=== PATIENT | male | born 1970 | race Hispanic/Latino ===

== ENCOUNTER 2020-01-27 13:05 | Emergency (ER) | payer BC ==
[2020-01-27 13:40] LABS: Absolute Lymphocytes (CBC) 2.6 K/uL (0.7-4.9); Basophils % 1.2 % (0-1.3); Hematocrit 44.2 % (39.6-49.0); Lymphocytes % 27.9 % (15.3-44.8); MPV 8.8 fL (7.6-11.3); RBC Red Blood Cell Count 5.17 M/uL (4.33-5.43)
[2020-01-27 13:56] LABS: BUN Blood Urea Nitrogen 10 mg/dL (7-18); Bicarbonate 29 mmol/L (21-32); Glucose Level 123 mg/dL (74-106); Potassium 3.9 mmol/L (3.5-5.1); Sodium Level 140 mmol/L (136-145)
--- NOTE | 2020-01-27 14:07 | RAD REPORT ---
EXAM DESCRIPTION: CT - Head Brain Wo Cont - 01/27/2020 1:56 pm CLINICAL HISTORY: ROMEO'S PALSY Headache, drowsiness, paresthesia COMPARISON: HEAD BRAIN W O CONTRAST dated 02/25/2008 TECHNIQUE: All CT scans are performed using dose optimization technique as appropriate and may inclu de automated exposure control or mA/KV adjustment according to patient size. FINDINGS: No intracranial hemorrhage, hydrocephalus or extra-axial fluid collection.No areas of brai n edema or evidence of midline shift. The paranasal sinuses and mastoids are clear. The calvarium is intact. IMPRESSION: No acute intracranial abnormality.
--- NOTE | 2020-01-27 14:59 | EDPHYS ---
Physician Documentation [facility] Name: Salty Shafer Age: 49 yrs Sex: Male : 1970 Arrival Date: 01/27/2020 Time: 13:08 Bed 5 Private MD: ED Physician Anthony Schofield HPI: 01/26 13:36 This 49 yrs old Male presents to ER via Ambulatory with complaints of facial rn droop, eye irritation. 13:36 The patient's problem is reported as a facial droop, on right. Onset: The rn symptoms/episode began/occurred yesterday. The symptoms are alleviated by nothing. The symptoms are aggravated by nothing. Severity of symptoms: At their worst the symptoms were mild in the emergency department the symptoms are unchanged. The patient has not experienced similar symptoms in the past. Reports noticed right eye bothering him yesterday, felt like something in it, no injury. Reports woke up this morning and noticed right facial droop, breakfast was falling out of mouth and unable to close right eye. No other focal neuro complaint. . Historical: - Allergies: 13:30 No Known Allergies; aa5 - Home Meds: 13:30 None [Active]; aa5 - PMHx: 13:30 None; aa5 - PSHx: 13:30 None; aa5 - Immunization history:: Flu vaccine is not up to date. - Social history:: Smoking status: Patient reports the use of cigarette tobacco products, chewing tobacco. - Family history:: not pertinent. - Hospitalizations: : No recent hospitalization is reported. 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 Exam: 13:36 Constitutional: This is a well developed, well nourished patient who is awake, alert, rn and in no acute distress. Head/Face: Normocephalic, atraumatic. Eyes: Pupils equal round and reactive to light, extra-ocular motions intact. Conjunctiva and sclera are non-icteric and not injected. Cornea within normal limits. Periorbital areas with no swelling, redness, or edema. + Unable to close right eye Cardiovascular: Regular rate and rhythm. No pulse deficits. Respiratory: Speaking full sentences. No increased work of breathing, no retractions or nasal flaring. Skin: Warm, dry with normal turgor. Normal color with no rashes, no lesions, and no evidence of cellulitis. MS/ Extremity: Pulses equal, no cyanosis. Neurovascular intact. Full, normal range of motion. Equal circumference. Neuro: Awake and alert, GCS 15, oriented to person, place, time, and situation.+ right upper and lower facial weakness. Motor strength 5/5 in all extremities. Sensory grossly intact. Cerebellar exam normal. Normal gait. Vital Signs: 13:10 BP 136 / 84; Pulse 88; Resp 18 S; Temp 98.5(O); Pulse Ox 97% on R/A; Weight 74.84 kg aa5 (R); Height 5 ft. 6 in. (167.64 cm) (R); Pain 0/10; 13:10 Body Mass Index 26.63 (74.84 kg, 167.64 cm) aa5 MDM: 13:11 Patient medically screened. rn 14:56 Differential diagnosis: CVA, Ulysses palsy. Data reviewed: vital signs, nurses notes. rn Counseling: I had a detailed discussion with the patient and/or guardian regarding: the historical points, exam findings, and any diagnostic results supporting the discharge/admit diagnosis, lab results, radiology results, the need for outpatient follow up, to return to the emergency department if symptoms worsen or persist or if there are any questions or concerns that arise at home. Special discussion: I discussed with the patient/guardian in detail that at this point there is no indication for admission to the hospital. It is understood, however, that if the symptoms persist or worsen the patient needs to return immediately for re-evaluation. Based on the history and exam findings, there is no indication for further emergent testing or inpatient evaluation. I discussed with the patient/guardian the need to see the neurologist for further evaluation of the symptoms. ED course: Pt with neg ct head, no acute findings in bloodwork, will dc home as bells palsy with neuro f/u and steroids. . 14:59 ED course: Advised to use lubricant eyedrops, and tape eye shut at night. . rn 01/26 13:19 Order name: CBC with Diff; Complete Time: 14:05 rn 01/26 13:19 Order name: Basic Metabolic Panel; Complete Time: 14:05 rn 01/26 13:19 Order name: CT Head Brain wo Cont; Complete Time: 14:33 rn 01/26 13:19 Order name: IV Start; Complete Time: 13:35 rn Administered Medications: No medications were administered Disposition: 01/27/20 14:58 Discharged to Home. Impression: Wilkes's palsy. - Condition is Stable. - Discharge Instructions: Wilkes Palsy, Adult. - Prescriptions for Acyclovir 400 mg Oral Tablet - take 1 tablet by ORAL route every 8 hours; 30 tablet. Medrol (Sulaiman) 4 mg Oral Tablets, Dose Pack - take 1 tablet by ORAL route as directed - follow package instructions; 1 packet. - Medication Reconciliation Form, Thank You Letter, Antibiotic Education, Prescription Opioid Use form. - Follow up: Amanuel Graff MD; When: As needed; Reason: Recheck today's complaints, Re-evaluation by your physician. - Problem is new. - Symptoms are unchanged. Signatures: Dispatcher [employer] Suzan Alvarado RN Anthony Burk MD MD rn Calderon, Audri, RN RN aa5 Corrections: (The following items were deleted from the chart) 15:13 14:58 01/27/2020 14:58 Discharged to Home. Impression: Wilkes's palsy. Condition is iw Stable. Forms are Medication Reconciliation Form, Thank You Letter, Antibiotic Education, Prescription Opioid Use. Follow up: Amanuel Graff; When: As needed; Reason: Recheck today's complaints, Re-evaluation by your physician. Problem is new. Symptoms are unchanged. rn
--- NOTE | 2020-01-27 14:59 | ER ---
Nurse's Notes [facility] Name: Salty Shafer Age: 49 yrs Sex: Male : 1970 Arrival Date: 01/27/2020 Time: 13:08 Bed 5 Private MD: Diagnosis: Wilkes's palsy Presentation: 01/26 13:10 Chief complaint: Patient states: numbness to right side of face that began today at aa5 1200. Pt also reports blurry vision to both eyes since yesterday. No arm or leg drift noted. Right facial droop noted. 13:10 Coronavirus screen: Proceed with normal triage. Patient denies a cough. Patient denies aa5 shortness of breath or difficulty breathing. Patient denies measured and/or subjective temperature greater than 100.4F prior to today's visit. Patient denies travel on a cruise ship or to a country the [facility] currently lists as an affected area. Patient denies contact with known and/or suspected case of COVID-19. Ebola Screen: Patient negative for fever greater than or equal to 101.5 degrees Fahrenheit, and additional compatible Ebola Virus Disease symptoms. Initial Sepsis Screen: Does the patient meet any 2 criteria? No. Patient's initial sepsis screen is negative. Does the patient have a suspected source of infection? No. Patient's initial sepsis screen is negative. Risk Assessment: Do you want to hurt yourself or someone else? Patient reports no desire to harm self or others. Onset of symptoms was January 27, 2020. 13:10 Acuity: RALPH 2 aa5 13:10 Method Of Arrival: Ambulatory aa5 Triage Assessment: 13:10 General: Appears in no apparent distress. comfortable, Behavior is cooperative, bp appropriate for age, anxious. Pain: Denies pain. EENT: No deficits noted. Neuro: Facial droop on right. Cardiovascular: No deficits noted. Respiratory: No deficits noted. GI: No signs and/or symptoms were reported involving the gastrointestinal system. : No signs and/or symptoms were reported regarding the genitourinary system. Derm: No deficits noted. Musculoskeletal: No deficits noted. Historical: - Allergies: 13:30 No Known Allergies; aa5 - Home Meds: 13:30 None [Active]; aa5 - PMHx: 13:30 None; aa5 - PSHx: 13:30 None; aa5 - Immunization history:: Flu vaccine is not up to date. - Social history:: Smoking status: Patient reports the use of cigarette tobacco products, chewing tobacco. - Family history:: not pertinent. - Hospitalizations: : No recent hospitalization is reported. Screenin:10 Abuse screen: Denies threats or abuse. Denies injuries from another. Nutritional bp screening: No deficits noted. Tuberculosis screening: No symptoms or risk factors identified. Fall Risk None identified. Assessment: 13:10 General: SEE TRIAGE NOTE. bp Vital Signs: 13:10 BP 136 / 84; Pulse 88; Resp 18 S; Temp 98.5(O); Pulse Ox 97% on R/A; Weight 74.84 kg aa5 (R); Height 5 ft. 6 in. (167.64 cm) (R); Pain 0/10; 13:10 Body Mass Index 26.63 (74.84 kg, 167.64 cm) aa5 ED Course: 13:08 Patient arrived in ED. ag5 13:10 Arm band placed on Patient placed in an exam room, on a stretcher. aa5 13:10 Patient has correct armband on for positive identification. Bed in low position. Call bp light in reach. Side rails up X2. 13:11 Anthony Schofield MD is Attending Physician. rn 13:14 Ralph Zaldivar, AMANDEEP is Primary Nurse. bp 13:30 Triage completed. aa5 13:30 Inserted saline lock: 20 gauge in right forearm, using aseptic technique. Blood bp collected. 13:56 CT Head Brain wo Cont In Process Unspecified. EDMS 14:58 Amanuel Graff MD is Referral Physician. rn 15:13 No provider procedures requiring assistance completed. Patient did not have IV access iw during this emergency room visit. Administered Medications: No medications were administered Outcome: 14:58 Discharge ordered by . rn 15:13 Discharged to home ambulatory. iw 15:13 Condition: good 15:13 Discharge instructions given to patient, Instructed on discharge instructions, follow up and referral plans. medication usage, Demonstrated understanding of instructions, follow-up care, medications, Prescriptions given X 2. 15:13 Patient left the ED. iw Signatures: Dispatcher [employer] EDMS Suzan Mercado RN RN iw Anthony Schofield MD MD rn Calderon, Audri, RN RN aa5 Ralph Zaldivar RN RN bp Majo Devlin ag5
[2020-01-27 15:30] VITALS: BP 136/84; TEMP 98.5; O2SAT 97
== END 2020-01-27 15:13 | disposition home or self-care (01) ==
LOC: ER 13:05
DX: G51.0 Bell's palsy (principal); F17.220 Nicotine dependence, chewing tobacco, uncomplicated
CPT/HCPCS: 36415; 70450; 80048; 85025; 99284

== ENCOUNTER 2024-11-17 05:41 | Inpatient (IN) | payer BC, OTHER ==
[2024-11-17] MEDS ORDERED: MAGNES/ALUMIN/SIMET 30ML UCUP ONE (06:10)
[2024-11-17] MEDS ORDERED: LIDOCAINE VISCOUS 2% 10ML ORAL SOLN ONE (06:10)
[2024-11-17] MEDS ORDERED: NA CHLORIDE 0.9% 1,000 ML ONE ×2 (06:11→08:30)
[2024-11-17] MEDS ORDERED: FAMOTIDINE 20 MG/2 ML VIAL IV ONE (06:11)
[2024-11-17 06:19] LABS: Absolute Eosinophils 0.1 K/uL (0-0.5); Absolute Lymphocytes (CBC) 1.9 K/uL (0.7-4.9); Absolute Monocytes 0.5 K/uL (0.1-1.3); Absolute Neutrophil 8.9 K/uL (1.8-8.0); Basophils % 0.3 % (0-1.3); Eosinophils % 1.1 % (0-4.4); Hematocrit 42.2 % (39.6-49.0); Hemoglobin 13.9 g/dL (13.6-17.9); Lymphocytes % 16.8 % (15.3-44.8); MCH 28.4 pg (27.0-35.0); MCHC 32.9 g/dL (32.0-36.0); MCV 86.3 fL (80-100); MPV 8.5 fL (7.6-11.3); Monocytes % 4.1 % (3.3-12.3); Neutrophils % 77.7 % (41.7-73.7); Nucleated Red Blood Cells % 0.1 % (0-0); Platelets 311 thou/uL (152-406); RBC Red Blood Cell Count 4.89 M/uL (4.33-5.43); Red Cell Distribution Width 14.7 % (12.1-15.2)
[2024-11-17 06:34] LABS: Albumin 3.3 g/dL (3.4-5.0); Albumin/Globulin Ratio 0.9 (1.1-1.8); Anion Gap 8.4 mEq/L (5.0-15.0); Bilirubin Total 0.3 mg/dL (0.2-1.0); Globulin 3.6 g/dL (2.3-3.5); Potassium 3.4 mEq/L (3.5-5.1); Protein, Total 6.9 g/dL (6.4-8.2)
--- NOTE | 2024-11-17 07:38 | RAD REPORT ---
EXAMINATION: CT Abdomen Pelvis W Contrast CLINICAL INDICATION: Male, 54 years old. ABD PAIN TECHNIQUE: CT abdomen and pelvis was performed, after the administration of IV contrast, as per [facility] protocol. Axial, sagittal and coronal reconstructions were obtained. One or more of the following dose reduction techniques were used: Automated exposure control, adjustment of the mA and k V according to patient size, and iterative reconstruction. Unless otherwise specified, incidental findings do not require dedicated imaging follow-up. COMPARISON: No prior exam. FINDINGS: LOWER CHEST: The visualized lung bases are clear. LIVER: Normal in size and contour. Caudate lobe subcapsular fluid density 1.4 cm lesion suggesting a small cyst. No suspicious focal lesion. BILIARY SYSTEM: 1.7 cm cholesterol containing gallstones. Wall thickening and edema, with mucosal hyp erenhancement. No significant pericholecystic fluid. No gas locules SPLEEN: Normal size. No focal lesion. PANCREAS: No mass, ductal dilation, or neela-pancreatic fluid. ADRENALS: Normal; no mass. KIDNEYS: Normal size and contour. No hydronephrosis. Exophytic fluid density right lower renal pole 1 .5 cm lesion, suggesting a small cyst URINARY BLADDER: Unremarkable. GASTROINTESTINAL TRACT: No evidence of free air, significant intra-abdominal free fluid, bowel obstru ction or abscess. APPENDIX: Appendix not visualized, but no inflammatory changes in region of appendix. LYMPH NODES: No lymphadenopathy. MUSCULOSKELETAL: No acute or suspicious osseous abnormality. ADDITIONAL FINDINGS: None. IMPRESSION: Inflammatory changes of the gallbladder suggesting acute cholecystitis, with a 1.7 cm cholesterol con taining gallstones. Other incidental findings as above.
--- NOTE | 2024-11-17 08:14 | ER ---
Nurse's Notes [facility] Name: Salty Shafer Age: 54 yrs Sex: Male : 1970 Arrival Date: 11/17/2024 Time: 05:41 Bed 8 Private MD: Diagnosis: Acute cholecystitis;Other cholelithiasis with obstruction;Epigastric abdominal tenderness;Elevated white blood cell count Presentation: 11/17 05:48 Chief complaint: EMS states: Epigastric pain that started about 0300 hours. Pt had a BM ay and forced vomit but no relief. Denies CP, SOB, N/V. Coronavirus screen: Vaccine status: Patient reports receiving the 2nd dose of the covid vaccine. Client denies travel out of the [place] in the last 14 days. Ebola Screen: No symptoms or risks identified at this time. Initial Sepsis Screen: Does the patient meet any 2 criteria? No. Patient's initial sepsis screen is negative. Does the patient have a suspected source of infection? No. Patient's initial sepsis screen is negative. Risk Assessment: Do you want to hurt yourself or someone else? Patient reports no desire to harm self or others. Note BIBA with a c/o epigastric pain, pt alert and oriented, no distress noted. Rated pain 10/10. Denies CP, SOB, N/V. Onset of symptoms was November 17, 2024 at 03:00. 05:48 Method Of Arrival: EMS: [facility] ay 05:48 Acuity: RALPH 3 ay Triage Assessment: 05:53 General: Appears in no apparent distress. uncomfortable, Behavior is calm, cooperative. ay Pain: Complains of pain in epigastric Pain currently is 10 out of 10 on a pain scale. EENT: No signs and/or symptoms were reported regarding the EENT system. Neuro: Level of Consciousness is awake, alert, obeys commands, Oriented to person, place, time, situation, Speech is normal. Cardiovascular: Denies chest pain, nausea, vomiting. Respiratory: Airway is patent Respiratory effort is even, unlabored, Respiratory pattern is regular, symmetrical. GI: Abdomen is round Abd is soft X 4 quads Reports upper abdominal pain. : No signs and/or symptoms were reported regarding the genitourinary system. Derm: No signs and/or symptoms reported regarding the dermatologic system. Historical: - Allergies: 05:53 NKDA; ay - Immunization history:: Client reports receiving the 2nd dose of the Covid vaccine, Flu vaccine is up to date. - Infectious Disease History:: Denies. - Social history:: Smoking status: Patient reports use of chewing tobacco. - Family history:: not pertinent. Screenin:03 [facility] ED Fall Risk Assessment (Adult) History of falling in the last 3 months, ay including since admission No falls in past 3 months (0 pts) Confusion or Disorientation No (0 pts) Intoxicated or Sedated No (0 pts) Impaired Gait No (0 pts) Mobility Assist Device Used No (0 pt) Altered Elimination No (0 pt) Score/Fall Risk Level 0 - 2 = Low Risk Oriented to surroundings, Maintained a safe environment, Educated pt \T\ family on fall prevention, incl call for assistance when getting out of bed. Abuse screen: Denies threats or abuse. Nutritional screening: No deficits noted. Tuberculosis screening: No symptoms or risk factors identified. Assessment: 06:03 General: See Triage Assessments. GI: Bowel sounds present X 4 quads. ay 07:53 Reassessment:. General: Appears in no apparent distress. comfortable, Behavior is calm, ld1 cooperative, appropriate for age. Pain: Denies pain. Neuro: Level of Consciousness is awake, alert, obeys commands, Oriented to person, place, time, situation. Cardiovascular: Capillary refill < 3 seconds Patient's skin is warm and dry. Respiratory: Airway is patent Respiratory effort is even, unlabored. GI: Abdomen is flat, non-distended, Patient currently denies abdominal pain. : No signs and/or symptoms were reported regarding the genitourinary system. EENT: No signs and/or symptoms were reported regarding the EENT system. Derm: No signs and/or symptoms reported regarding the dermatologic system. Musculoskeletal: No signs and/or symptoms reported regarding the musculoskeletal system. Vital Signs: 05:53 BP 136 / 90; Pulse 62; Resp 19; Temp 98.1(O); Pulse Ox 100% ; ay 06:02 BP 143 / 86; Pulse 65; Resp 16; Pulse Ox 100% ; ay 07:52 BP 144 / 85; Pulse 74; Resp 18; Pulse Ox 99% on R/A; ld1 09:33 Weight 81.65 kg; Height 5 ft. 6 in. ; ld1 09:33 Body Mass Index 29.05 (81.65 kg, 167.64 cm) ld1 ED Course: 05:44 Patient arrived in ED. [id number] 05:44 Aman Watts MD is Attending Physician. rt 05:48 Amy Balderrama, RN is Primary Nurse. ay 05:53 Triage completed. ay 06:03 Maintain EMS IV. Dressing intact. Good blood return noted. Site clean \T\ dry. Gauge \T\ ay site: 18g LAC. Flushed with 10 mL NS. 06:06 CBC with Diff Sent. ay 06:06 CMP Sent. ay 06:06 Lipase Sent. ay 07:09 CT Abd/Pelvis - IV Contrast Only In Process Unspecified. EDMS 07:30 Attending Physician role handed off by Aman Watts MD sharath 07:30 Gamaliel Piña MD is Attending Physician. sharath 07:53 No provider procedures requiring assistance completed. ld1 07:53 Patient has correct armband on for positive identification. Placed in gown. Bed in low ld1 position. Call light in reach. Side rails up X2. Pulse ox on. NIBP on. Door closed. Noise minimized. Warm blanket given. 08:13 Yovani Bejarano MD is Hospitalizing Provider. sharath 08:14 Severiano Birmingham MD is Hospitalizing Provider. sharath 08:26 US Abdomen Limited In Process Unspecified. EDMS Administered Medications: 06:22 Drug: Famotidine IVP 20 mg IVP once; dilute with 10 mL 0.9% NaCl; give over 2 minutes ay Route: IVP; Site: left antecubital; 06:22 Drug: NS 0.9% IV 1000 ml IV at 1 bolus Per protocol; to be given as a bolus over 60 ay minutes Route: IV; Rate: 1 bolus; Site: left antecubital; 06:22 Drug: GI Cocktail without - (Maalox PO 30 ml, Lidocaine Mucous Membrane 2 % 15 ay ml) PO once Route: PO; 08:46 Drug: Piperacillin-Tazobactam IVPB 3.375 grams IVPB once over 60 mins; (mix in NS 100 iw mL) Route: IVPB; Infused Over: 60 mins; Site: left antecubital; 08:46 Drug: NS 0.9% IV 1000 ml IV at 125 ml/hr once Route: IV; Rate: 125 ml/hr; Site: left iw antecubital; Medication: 07:53 VIS not applicable for this client. ld1 Outcome: 08:14 Decision to Hospitalize by Provider. sharath 13:00 Patient left the ED. cc6 Signatures: Dispatcher [employer] EDIL Gamaliel Piña MD MD cha Williams, Irene, RN RN iw Elizabet Loving RN RN ld1 Madalyn [id number] Aman Watts MD MD rt Lashonda Mahmood cc6 Amy Balderrama RN RN ay
--- NOTE | 2024-11-17 08:14 | EDPHYS ---
Physician Documentation [facility] Name: Salty Shafer Age: 54 yrs Sex: Male : 1970 Arrival Date: 11/17/2024 Time: 05:41 Bed 8 Private MD: ED Physician Gamaliel Piña HPI: 11/17 07:20 This 54 yrs old Male presents to ER via EMS with complaints of Abdominal Pain. rt 07:20 Patient presents to the ED with epigastric pain starting about 3, states the pain was rt intense, has subsequently improved. Denies nausea, vomiting, acute complaints, symptoms are moderate in severity, no other aggravating or alleviating factors.. Historical: - Allergies: 05:53 NKDA; ay - Immunization history:: Client reports receiving the 2nd dose of the Covid vaccine, Flu vaccine is up to date. - Infectious Disease History:: Denies. - Social history:: Smoking status: Patient reports use of chewing tobacco. - Family history:: not pertinent. ROS: 07:20 Constitutional: Negative for fever, chills, and weight loss, Cardiovascular: Negative rt for chest pain, palpitations, and edema, Respiratory: Negative for shortness of breath, cough, wheezing, and pleuritic chest pain, MS/Extremity: Negative for injury and deformity, Skin: Negative for injury, rash, and discoloration, Neuro: Negative for headache, weakness, numbness, tingling, and seizure, 07:20 Abdomen/GI: Positive for abdominal pain, Negative for nausea and vomiting, Exam: 07:20 Constitutional: This is a well developed, well nourished patient who is awake, alert, rt and in no acute distress. Head/Face: Normocephalic, atraumatic. Chest/axilla: Normal chest wall appearance and motion. Nontender with no deformity. No lesions are appreciated. Cardiovascular: Regular rate and rhythm with a normal S1 and S2. No gallops, murmurs, or rubs. Normal PMI, no JVD. No pulse deficits. Respiratory: Lungs have equal breath sounds bilaterally, clear to auscultation and percussion. No rales, rhonchi or wheezes noted. No increased work of breathing, no retractions or nasal flaring. Skin: Warm, dry with normal turgor. Normal color with no rashes, no lesions, and no evidence of cellulitis. MS/ Extremity: Pulses equal, no cyanosis. Neurovascular intact. Full, normal range of motion. Neuro: Awake and alert, GCS 15, oriented to person, place, time, and situation. Cranial nerves II-XII grossly intact. Motor strength 5/5 in all extremities. Sensory grossly intact. Cerebellar exam normal. Normal gait. 07:20 Abdomen/GI: Mild tenderness to the epigastrium without rebound, guarding, distention, 11:09 ECG was reviewed by the Attending Physician. sharath Vital Signs: 05:53 BP 136 / 90; Pulse 62; Resp 19; Temp 98.1(O); Pulse Ox 100% ; ay 06:02 BP 143 / 86; Pulse 65; Resp 16; Pulse Ox 100% ; ay 07:52 BP 144 / 85; Pulse 74; Resp 18; Pulse Ox 99% on R/A; ld1 09:33 Weight 81.65 kg; Height 5 ft. 6 in. ; ld1 09:33 Body Mass Index 29.05 (81.65 kg, 167.64 cm) ld1 MDM: 05:47 Medical Screening Exam initiated rt 08:19 Differential Diagnosis sepsis. Data reviewed: vital signs, nurses notes, lab test [facility] result(s), EKG, radiologic studies, CT scan, plain films, ultrasound. Consideration of Admission/Observation Patient was admitted/placed on observation. Escalation of care including admission/observation considered. I considered the following discharge prescriptions or medication management in the emergency department Medications were administered in the Emergency Department. See MAR. Independent interpretation of the following test(s) in the Emergency Department EKG: See my EKG interpretation above. Test considered but Not performed: MRI: no mrcp. Historians other than the Patient: pt well informed. Care significantly affected by the following chronic conditions: Hypertension. 11/17 05:46 Order name: CBC with Diff; Complete Time: 06:35 rt 11/17 05:46 Order name: CMP; Complete Time: 06:35 rt 11/17 05:46 Order name: Lipase; Complete Time: 06:35 rt 11/17 08:38 Order name: CBC with Automated Diff EDMS 11/17 08:38 Order name: CBC with Automated Diff EDMS 11/17 08:38 Order name: Comprehensive Metabolic Panel EDMS 11/17 08:38 Order name: Comprehensive Metabolic Panel EDMS 11/17 08:38 Order name: Lipase EDRI 11/17 08:38 Order name: Lipase [facility]RI 11/17 08:38 Order name: Magnesium [facility]RI 11/17 08:38 Order name: Magnesium [facility] 11/17 08:38 Order name: Phosphorus EDRI 11/17 08:38 Order name: Phosphorus [facility] 11/17 05:46 Order name: CT Abd/Pelvis - IV Contrast Only; Complete Time: 08:11 rt 11/17 07:30 Order name: US Abdomen Limited [facility] 11/17 11:07 Order name: RAD [facility] 11/17 08:38 Order name: CONS Physician Consult [facility] 11/17 10:15 Order name: EKG; Complete Time: 10:15 sharath 11/17 05:46 Order name: IV Saline Lock; Complete Time: 06:06 rt 11/17 05:46 Order name: Labs collected and sent; Complete Time: 06:06 rt 11/17 10:15 Order name: EKG - Nurse/Tech; Complete Time: 12:04 [facility] EC:09 Rate is 68 beats/min. Rhythm is regular. QRS [place] is Normal. OK interval is normal. QRS sharath interval is normal. QT interval is normal. No Q waves. T waves are Normal. No ST changes noted. Clinical impression: Normal ECG and No evidence of ischemia. Interpreted by me. Reviewed by me. Administered Medications: 06:22 Drug: Famotidine IVP 20 mg IVP once; dilute with 10 mL 0.9% NaCl; give over 2 minutes ay Route: IVP; Site: left antecubital; 06:22 Drug: NS 0.9% IV 1000 ml IV at 1 bolus Per protocol; to be given as a bolus over 60 ay minutes Route: IV; Rate: 1 bolus; Site: left antecubital; 06:22 Drug: GI Cocktail without - (Maalox PO 30 ml, Lidocaine Mucous Membrane 2 % 15 ay ml) PO once Route: PO; 08:46 Drug: Piperacillin-Tazobactam IVPB 3.375 grams IVPB once over 60 mins; (mix in NS 100 iw mL) Route: IVPB; Infused Over: 60 mins; Site: left antecubital; 08:46 Drug: NS 0.9% IV 1000 ml IV at 125 ml/hr once Route: IV; Rate: 125 ml/hr; Site: left iw antecubital; Disposition Summary: 11/17/24 08:14 Hospitalization Ordered Notes: Hospitalization Status: Inpatient Admission sharath Condition: Fair sharath Problem: new sharath Symptoms: have improved sharath Bed/Room Type: Standard sharath Provider: Severiano Birmingham(11/17/24 08:16) sharath Location: Telemetry/MedSurg (Inpatient)(11/17/24 12:04) sp Room Assignment: 216(11/17/24 12:04) sp Diagnosis - Acute cholecystitis sharath - Other cholelithiasis with obstruction sharath - Epigastric abdominal tenderness sharath - Elevated white blood cell count sharath Forms: - Medication Reconciliation Form sharath - SBAR form sharath - Leadership Thank You Letter sharath Signatures: Dispatcher [employer] EDMS Gamaliel Piña MD MD cha Pinkerton, Shawna sp Williams, Irene, RN RN iw Aman Watts MD MD rt Lashonda Mahmood cc6 Amy Balderrama RN RN ay Corrections: (The following items were deleted from the chart) 08:16 08:14 Darci, Azfar sharath sharath 10:15 10:15 Chest Single View+RAD.RAD.BRZ ordered. EDMS EDMS 11:20 08:14 Telemetry/MedSurg (Inpatient) sharath cc6 11:20 08:14 sharath cc6 12:04 11:20 [facility] ER HOLD cc6 sp 12:04 11:20 ERHOLD- cc6 sp
[2024-11-17] MEDS ORDERED: NA CHLORIDE 0.9% 100 ML ONE (08:29)
[2024-11-17] MEDS ORDERED: PIPERACIL/TAZO 3.375 GM VIAL IV ONE (08:30)
[2024-11-17] MEDS ORDERED: ACETAMINOPHEN 500 MG TAB PO PRN (08:33)
[2024-11-17] MEDS ORDERED: ONDANSETRON 4 MG/2 ML VIAL IV PRN (08:33)
--- NOTE | 2024-11-17 08:33 | P.HP ---
Certification for Inpatient Patient admitted to: Inpatient With expected LOS: >2 Midnights Patient will require the following post-hospital care: None Practitioner: I am a practitioner with admitting privileges, knowledge of patient current condition, hospital course, and medical plan of care. Services: Services provided to patient in accordance with Admission requirements found in Title 42 Section 412.3 of the Code of Federal Regulations Patient History Date of Service: 11/17/24 Reason for admission: Acute cholecystitis History of Present Illness: Patient is a 54-year-old gentleman came to the hospital with abdominal pain. Pain was in the epigastric region and right upper quadrant. Patient had some nausea but no vomiting. Patient's pain was not improving so he came into the emergency room. Patient denies any history of medical issues. He has not lost a large amount of weight. He does not remember having a lot of pain similar to what he had today. He does occasionally have some epigastric tenderness if he is a heavy fatty meal but he thought it was related to heartburn. Currently, patient looks to be doing fairly well. Imaging studies reveal acute cholecystitis with cholelithiasis. LFTs and lipase are within normal limits so patient will be admitted for acute cholecystitis. General surgery consulted for laparoscopic cholecystectomy. Patient will be admitted to the hospital for inpatient hospitalization. Allergies No Known Allergies Allergy (Unverified 03/10/13 09:54) Home medications list reviewed: Yes - Past Medical/Surgical History Past Medical History: Patient denies medical history Past Surgical History: Patient denies surgical history - Family History Father Family History: Reviewed- Non-Contributory - Social History Smoking Status: Never smoker Alcohol use: No CD- Drugs: No Review of Systems 10-point ROS is otherwise unremarkable Physical Examination - Vital Signs Temperature: 98 F Blood Pressure: 130/80 Pulse: 80 Respirations: 18 Pulse Ox (%): 95 - Physical Exam General: Alert, In no apparent distress, Oriented x3 HEENT: Atraumatic, PERRLA, Mucous membr. moist/pink, EOMI, Sclerae nonicteric Neck: Supple, 2+ carotid pulse no bruit, No LAD, Without JVD or thyroid abnormality Respiratory: Clear to auscultation bilaterally, Normal air movement Cardiovascular: Regular rate/rhythm, Normal S1 S2 Gastrointestinal: Normal bowel sounds, Tenderness, Rebound, Guarding Musculoskeletal: No clubbing, No swelling, No tenderness Integumentary: No rashes Neurological: Normal gait, Normal speech, Normal strength at 5/5 x4 extr, Normal tone, Sensation intact, Cranial nerves 3-12 intact, Normal affect Lymphatics: No axilla or inguinal lymphadenopathy - Studies Laboratory Data (last 24 hrs) 11/17/24 11/17/24 05:54 05:54 WBC 11.40 H Hgb 13.9 Hct 42.2 Plt Count 311 Sodium 140 Potassium 3.4 L BUN 12 Creatinine 0.65 L Glucose 149 H Total Bilirubin 0.3 AST 11 L ALT 25 Alkaline Phosphatase 85 Lipase 24 Assessment & Plan - Problems (Diagnosis) (1) Cholelithiasis and acute cholecystitis without obstruction Current Visit: Yes Status: Acute - Plan Plan: 1. Continue with IV fluids and IV antibiotics 2. Pain control 3. Monitor LFTs 4. General Surgery consulted; patient n.p.o. for possible surgical intervention 5. GI DVT prophylaxis Discharge Plan: Home Plan to discharge in: Greater than 2 days - Advance Directives Does patient have a Living Will: No Does patient have a Durable POA for Healthcare: No - Code Status/Comfort Care Code Status Assessed: Yes Code Status: Full Code Critical Care: No Time Spent Managing PTS Care (In Minutes): 45
[2024-11-17] MEDS: ENOXAPARIN 40 MG/0.4 ML SQ SCH (09:00)
[2024-11-17] MEDS: Levofloxacin500mg IV 500 MG/100 ML BAG IV SCH (09:00)
[2024-11-17] MEDS: NA CHLORIDE 0.9% 1,000 ML IV SCH (09:00)
[2024-11-17] MEDS ORDERED: HYDROMORPHONE HCL 0.5 MG/0.5 ML INJ IV PRN (09:08)
[2024-11-17] MEDS ORDERED: ENOXAPARIN 40 MG/0.4 ML SQ ONE (09:08)
--- NOTE | 2024-11-17 09:25 | RAD REPORT ---
EXAMINATION: US Abdomen Exam Limited CLINICAL HISTORY: ABD PAIN COMPARISON: None. TECHNIQUE: Limited upper abdominal grayscale and color flow sonographic images. FINDINGS: Gallbladder: Gallbladder wall thickened up to 6 mm. Numerous gallstones with shadowing, largest measu ring 1.7cm. No pericholecystic fluid. Bile ducts: No intrahepatic or extrahepatic biliary dilatation. Common bile duct measures 4 mm. Liver: Visualized portions of the liver demonstrate normal echogenicity with no suspicious findings. Fluid: No ascites. IMPRESSION: Cholelithiasis with wall thickening suggesting acute cholecystitis.
[2024-11-17 09:34] VITALS: BMI 29.0
--- NOTE | 2024-11-17 11:07 | RAD REPORT ---
EXAMINATION: ONE VIEW CHEST XR CLINICAL INDICATION: Male, 54 years old.,CHEST PAIN TECHNIQUE: Frontal chest projection is submitted. Examination is limited by patient positioning and t echnique. COMPARISON: 02/25/2000 FINDINGS: The lungs are well inflated and clear. No pneumothorax or sizable effusion. The heart is normal in s ize. Mediastinal contours are unremarkable. IMPRESSION: No acute intrathoracic abnormalities.
[2024-11-17] MEDS: METRONIDAZOLE 500mg IVPB 500 MG/100 ML BAG IV SCH (12:48)
--- NOTE | 2024-11-17 14:38 | CON ---
Date of Consultation: 11/17/2024 Reason For Service: Epigastric right upper quadrant pain, acute cholecystitis, symptomatic cholelith iasis. History Of Present Illness: This is the case of a 54-year-old patient, comes to us with epigastric r ight upper quadrant pain, radiated to the back, associated with nausea, vomiting since last night. Alma paz ate some cheeseburger and tater tots before that for dinner. He does not recall having this pain b efore. He denies any dysuria, hematuria, hematochezia, melena. Denies any recent travel out of the country. Denies any family member sick at home. The patient advised importance of colonoscopy since he has not had it done yet. Review of Systems: See above. 10 points otherwise unremarkable. Allergies: NONE. Medications: None. Surgeries: None. Family History: Noncontributory. Social History: He does not smoke. He does not drink alcohol. Physical Examination: Vital Signs: Reviewed. General: The patient is awake, alert. HEENT: Pupils are equal and reactive. Anicteric. Neck: Supple. Chest: Clear. Heart: S1, S2. Abdomen: Epigastric right upper quadrant pain with Ni sign positive. Extremities: Good capillary refill. Good peripheral pulses. Rectal: Deferred. Laboratory Data: Blood work shows sodium 140, chloride is 108, creatinine is 0.65. WBC count of 11. 4, hemoglobin of 13.9, and platelets of 311. Ultrasound of the abdomen and pelvis and abdominal pelv ic CT interpreted by Dr. Alejo as cholelithiasis with wall thickening suggesting acute cholecystitis . CAT scan also interpreted by Dr. Alejo as inflammatory changes of the gallbladder suggesting acut e cholecystitis. Also, liver had 1.4 cm lesion suggesting a cyst. The patient advised to discuss th at with his primary doctor. Assessment: This is a 54-year-old patient comes to us with acute cholecystitis, symptomatic cholelit hiasis. The benefits, alternatives, and risks of laparoscopic possible open cholecystectomy fully ex plained which include, but not limited to infection, bleeding, damage to adjacent structures, anesthe samara complication, choledocholithiasis, bile leak, pancreatitis, CT, even . He also understands this may not relieve symptoms, he might need more than one surgical intervention. He preferred to mccall ve the surgery during this admission. The OR is available at this moment, so the patient was booked in OR. ROSALIA/NAPOLEON Voice ID: [id number] Report ID: [id number]
[2024-11-17] MEDS ORDERED: propofoL 200 MG/20 ML VIAL IV ONE (14:52)
[2024-11-17] MEDS ORDERED: FENTANYL CITR 100 MCG/2 ML ONE (14:52)
[2024-11-17] MEDS ORDERED: LIDOCAINE 2% MPF 5 ML VIAL ONE (14:52)
[2024-11-17] MEDS ORDERED: ROCURONIUM 50 MG/5 ML VIAL IV ONE (14:53)
[2024-11-17] MEDS ORDERED: MIDAZOLAM HCL 2 MG/2 ML INJ ONE (14:53)
[2024-11-17] MEDS: Ringers Lactate 1,000 ML IV ONE (15:20)
[2024-11-17] MEDS: SUGAMMADEX SODIUM 200 MG/2 ML VIAL IV ONE (15:31)
--- NOTE | 2024-11-17 15:54 | P.BOP ---
Preoperative diagnosis: acute cholecystitis, symtomatic cholelithiasis Postoperative diagnosis: same Primary procedure: Laparoscopic cholecystectomy Director Of Patient Financial Services: Sheila Bustillo) Estimated blood loss: <10cc Specimen: gb Findings: inflammed gallbladder Anesthesia: General Drain(s): MICHAEL drain Transferred to: Recovery Room Condition: Good
[2024-11-17] MEDS ORDERED: ONDANSETRON 4 MG/2 ML VIAL ONE (16:02)
[2024-11-17] MEDS: HYDROMORPHONE HCL 1 MG/ML INJ ONE (16:31)
[2024-11-17 17:04] VITALS: O2SAT 96
--- NOTE | 2024-11-17 17:33 | OP ---
Date of Procedure: 11/17/2024 Surgeon: Roberto Reed MD Furniture Delivery Driver: JOCELYN Ludwig. Preoperative Diagnoses: Acute cholecystitis, symptomatic cholelithiasis. Postoperative Diagnoses: Acute cholecystitis, symptomatic cholelithiasis. Procedure: Laparoscopic cholecystectomy. Estimated Blood Loss: Less than 10 cc. Specimen: Gallbladder. Findings: Inflamed gallbladder as above. Anesthesia: General plus local. Drains: MICHAEL #10. Indications: This is the case of a male, who comes to us with acute abdominal pain, diagnosed with a cute cholecystitis, symptomatic cholelithiasis, intractable abdominal pain, so offered laparoscopic p ossible open cholecystectomy with benefits, alternatives, and risks including, but not limited to inf ection, bleeding, damage to adjacent structures, anesthesia complication, choledocholithiasis, bile l eak, pancreatitis, [place], even . He also understands this may not relieve his symptoms, he might n eed more than one surgical intervention. He understood, signed consent. Description Of Procedure: The patient sent to the operating room, placed in supine position. Anesth esia was done without complication. Abdominal area was prepped and draped in the usual sterile fashi on. Marcaine 0.5% was injected for local anesthetic followed by sharp incision of the skin in the in fraumbilical region. Incision was carried down to fascia, which was opened under direct vision. Per itoneum was encountered, opened under direct vision. Vicryl #1 placed inside the fascia. Lucio tro car was carefully introduced. Pneumoperitoneum was obtained. I placed 3 more trocars, 5 mm each one of them, 1 in epigastric area, 2 in right upper quadrant, using same technique which consisted of lo po anesthetic, sharp incision of the skin, introduction of the trocars under direct vision. This al lowed me to put a grasper in the fundus of the gallbladder, another grasper in the infundibulum, retr acted the gallbladder in the inferolateral fashion, exposed the triangle of Calot, obtained critical view. Cystic duct and cystic artery were clearly isolated and freed circumferentially. A connection between those and the gallbladder was clearly identified. We noticed the patient to have some swell ing of the gallbladder consistent with the diagnosis. The gallbladder was retracted in the inferolat eral fashion exposing the triangle of Calot, obtaining critical view. The cystic duct and cystic art jovana were clearly isolated, freed circumferentially, and connection between those and the gallbladder was clearly identified. I proceeded to clip the area with at least 3 clips proximal, 1 clip distal, ligation in middle. Same was done with the cystic artery. Small little branch of the cystic artery was also ligated. Common bile duct and hepatic arteries were protected at all times. The gallbladde r was removed from liver using Bovie cauterizer and removed from abdominal cavity using EndoCatch thr ough the umbilical incision. The area was inspected once again. No bile leak. No bleeding. At lourdes t moment, I proceeded to remove the trocars under direct vision. Deflated pneumoperitoneum. Closed the fascia with #1 Vicryl. Irrigated subcutaneous tissue, closed that with 3-0 chromic. Before that , I left a MICHAEL drain in the right upper quadrant exiting through another trocar site and secured that in place with 3-0 nylon. The fascia was closed with #1 Vicryl and subcutaneous tissue with 3-0 chrom ic and skin with josey. Sponge count, instrument counts correct. The patient tolerated the proced ure well. The patient was sent to recovery in stable condition. ROSALIA/NAPOLEON Voice ID: [id number] Report ID: [id number]
[2024-11-17] MEDS: HYDROCODONE/APAP 5/325 MG TAB PO PRN (20:36)
[2024-11-18 06:16] LABS: Absolute Basophils 0.1 K/uL (0-0.5); Absolute Eosinophils 0.1 K/uL (0-0.5); Absolute Lymphocytes (CBC) 2.1 K/uL (0.7-4.9); Absolute Monocytes 0.9 K/uL (0.1-1.3); Basophils % 0.4 % (0-1.3); Eosinophils % 0.4 % (0-4.4); Hematocrit 41.8 % (39.6-49.0); Hemoglobin 13.7 g/dL (13.6-17.9); Lymphocytes % 16.2 % (15.3-44.8); MCH 28.1 pg (27.0-35.0); MCHC 32.7 g/dL (32.0-36.0); MCV 85.9 fL (80-100); MPV 8.5 fL (7.6-11.3); Monocytes % 6.9 % (3.3-12.3); Neutrophils % 76.1 % (41.7-73.7); Nucleated Red Blood Cells % 0.1 % (0-0); Platelets 291 thou/uL (152-406); RBC Red Blood Cell Count 4.86 M/uL (4.33-5.43); Red Cell Distribution Width 14.9 % (12.1-15.2)
[2024-11-18 06:35] LABS: Albumin 3.1 g/dL (3.4-5.0); Albumin/Globulin Ratio 0.9 (1.1-1.8); Anion Gap 8.8 mEq/L (5.0-15.0); Bilirubin Total 0.8 mg/dL (0.2-1.0); Globulin 3.5 g/dL (2.3-3.5); Phosphorus 2.2 mg/dL (2.5-4.9); Potassium 3.8 mEq/L (3.5-5.1); Protein, Total 6.6 g/dL (6.4-8.2)
[2024-11-18] MEDS: POTASS/SODIUM PHOSPHATE 1 PKT POWD.PACK PO SCH (09:10)
[2024-11-18] MEDS: POTASSIUM 25 MEQ EFFERV TAB PO ONE (09:10)
--- NOTE | 2024-11-18 12:43 | P.PN ---
Subjective Date of Service: 11/18/24 Chief Complaint: Acute cholecystitis, s/p lap olya Subjective: Tolerating diet, Ambulating, Improving Review of Systems Respiratory: Unremarkable Cardiovascular: Unremarkable Gastrointestinal: As per HPI Genitourinary: Unremarkable Physical Examination - Vital Signs Temperature: 98.8 F Blood Pressure: 153/84 Pulse: 75 Respirations: 16 Pulse Ox (%): 95 - Physical Exam General: Alert, In no apparent distress, Oriented x3, Cooperative HEENT: Normocephalic, PERRLA, EOMI, Sclerae nonicteric Neck: Supple Respiratory: Normal air movement Cardiovascular: No edema, Normal pulses Gastrointestinal: Soft and benign Musculoskeletal: No erythema, No tenderness, No warmth Integumentary: No rashes, No breakdown Neurological: Normal speech Assessment And Plan - Plan OK to D/H with MICHAEL drain instructions f/U my office or tuesday. Pt to call to for appt time MAy take showers tomorros. PO abx for a week.
[2024-11-18 19:50] VITALS: BP 141/74; TEMP 98.4
--- NOTE | 2024-11-19 12:03 | EKG ---
Test Date: 2024-11-17 Test Time: 11:07:46 Dumpster Driver: TANNA MEASUREMENT RESULTS: Intervals: Rate: 68 FL: 132 QRSD: 102 QT: 402 QTc: 427 [place]: P: 63 FL: 132 QRS: 43 T: 28 INTERPRETIVE STATEMENTS: Normal sinus rhythm Normal ECG No previous ECG available for comparison Electronically Signed On 11-19-24 11:59:31 HOTEL LOBBY CONCIERGE by Jase Blanchard
== END 2024-11-18 17:17 | disposition home or self-care (01) | DRG 419 ==
LOC: ER 05:41 → ERHOLD 08:33 → 2ND 12:04
PROVIDERS: ADMIT Hospitalist; ATTEND Hospitalist
PROC: 0FT44ZZ Resection of Gallbladder, Percutaneous Endoscopic Approach (ICD-10-PCS; principal; 2024-11-17 13:15)
DX: K80.00 Calculus of gallbladder with acute cholecystitis without obstruction (principal); K76.89 Other specified diseases of liver; F17.220 Nicotine dependence, chewing tobacco, uncomplicated
CPT/HCPCS: 36415; 71045; 74177; 76705; 80053; 83690; 83735; 84100; 85025; 88304; 93005; 94010; 96374; 96375; 99284; J1171; J1650; J2003; J2250; J2405; J2543; J2704; J3010; J7030; J7120

== ENCOUNTER 2025-06-27 11:14 | Emergency (ER) | payer OTHER ==
--- NOTE | 2025-06-27 11:53 | EDPHYS ---
Physician Documentation [facility] Name: Salty Shafer Age: 54 yrs Sex: Male : 1970 Arrival Date: 06/27/2025 Time: 11:14 Bed 12 Private MD: ED Physician Anthony Schofield HPI: 06/27 11:48 This 54 yrs old Male presents to ER via Ambulatory with complaints of Eye rn Swelling. 11:48 Patient reports working outside yesterday thinks got into poison sia, reports itchy rn rash to bilateral forearms and right eye swelling. No difficulty breathing. No other new exposure such as medication or food. No vomiting. No abdominal pain. Took Benadryl earlier with some improvement but not resolution.. Historical: - Allergies: 11:42 NKDA; bp - Immunization history:: Adult Immunizations up to date. - Infectious Disease History:: Denies. - Social history:: Smoking status: Patient denies any tobacco usage or history of. - Family history:: not pertinent. - Hospitalizations: : No recent hospitalization is reported. ROS: 11:48 Constitutional: Negative for fever, chills, and weight loss, Eyes: Positive for right rn eye swelling Cardiovascular: Negative for chest pain, palpitations, and edema, Respiratory: Negative for shortness of breath, cough, wheezing, and pleuritic chest pain, Abdomen/GI: Negative for abdominal pain, nausea, vomiting, diarrhea, and constipation, MS/Extremity: Negative for injury and deformity, Skin: Positive for rash and itching to arms Neuro: Negative for headache, weakness, numbness, tingling, and seizure, Exam: 11:48 Constitutional: This is a well developed, well nourished patient who is awake, alert, rn and in no acute distress. Head/Face: Normocephalic, atraumatic. Eyes: Right eye periorbital swelling without erythema or bite or open wound. Cardiovascular: Regular rate and rhythm. No pulse deficits. Respiratory: No increased work of breathing, no retractions or nasal flaring. Skin: Warm, dry, linear abrasions bilateral forearms with pustular lesions and urticaria. Vital Signs: 11:43 BP 144 / 84; Pulse 82; Resp 16; Temp 98; Pulse Ox 100% ; bp MDM: 11:27 Medical Screening Exam initiated rn 11:48 Differential diagnosis: Contact dermatitis. Data reviewed: vital signs, nurses notes, rn and as a result, I will discharge patient. Counseling: I had a detailed discussion with the patient and/or guardian regarding the historical points, exam findings, and any diagnostic results supporting the discharge/admit diagnosis, the need for outpatient follow up, to return to the emergency department if symptoms worsen or persist or if there are any questions or concerns that arise at home. Special discussion: I discussed with the patient/guardian in detail that at this point there is no indication for admission to the hospital. It is understood, however, that if the symptoms persist or worsen the patient needs to return immediately for re-evaluation. Administered Medications: 12:28 Drug: MethylPREDNISolone Sodium Succinate IM 125 mg IM once Route: IM; Site: right bp deltoid; 12:29 Follow up: Response: No adverse reaction bp 12:28 Drug: hydrOXYzine PO 50 mg PO once Route: PO; bp 12:28 Follow up: Response: No adverse reaction bp Disposition Summary: 06/27/25 11:52 Discharge Ordered Notes: Location: Home rn Problem: new rn Symptoms: have improved rn Condition: Stable rn Diagnosis - Allergic contact dermatitis due to plants, except food rn Followup: rn - With: Private Physician - When: As needed - Reason: Recheck today's complaints, Re-evaluation by your physician Discharge Instructions: - Discharge Summary Sheet rn - Contact Dermatitis rn - Poison Sia Dermatitis rn Forms: - Medication Reconciliation Form rn - Antibiotic journeyman welder - Prescription Opioid Use rn - Patient Portal Instructions rn - Leadership Thank You Letter rn Prescriptions: - Hydroxyzine HCl 50 mg Oral Tablet - take 1 tablet ORAL route every 8 hours As needed; 20 tablet; Refills: 0, rn Product Selection Permitted - Medrol (Sulaiman) 4 mg Oral Tablets, Dose Pack - take 1 tablet ORAL route as directed - follow package instructions; 1 packet; rn Refills: 0, Product Selection Permitted Signatures: Anthony Schofield MD MD rn Ralph Zaldivar RN RN bp
--- NOTE | 2025-06-27 11:53 | ER ---
Nurse's Notes [facility] Name: Salty Shafer Age: 54 yrs Sex: Male : 1970 Arrival Date: 06/27/2025 Time: 11:14 Bed 12 Private MD: Diagnosis: Allergic contact dermatitis due to plants, except food Presentation: 06/27 11:43 Chief complaint: Patient states: R EYE AND B FA RASH AND SWELLING. Coronavirus screen: bp At this time, the client does not indicate any symptoms associated with coronavirus-19. Ebola Screen: No symptoms or risks identified at this time. Initial Sepsis Screen: Does the patient meet any 2 criteria? No. Patient's initial sepsis screen is negative. Does the patient have a suspected source of infection? No. Patient's initial sepsis screen is negative. Risk Assessment: Do you want to hurt yourself or someone else? Patient reports no desire to harm self or others. Onset of symptoms is unknown. 11:43 Method Of Arrival: Ambulatory bp 11:43 Acuity: RALPH 5 bp Triage Assessment: 11:45 General: Appears in no apparent distress. Behavior is calm, cooperative, appropriate bp for age. Pain: Denies pain. EENT: No deficits noted. Neuro: No deficits noted. Cardiovascular: No deficits noted. Respiratory: No deficits noted. GI: No signs and/or symptoms were reported involving the gastrointestinal system. : No signs and/or symptoms were reported regarding the genitourinary system. Derm: Rash noted that is. Musculoskeletal: No deficits noted. Historical: - Allergies: 11:42 NKDA; bp - Immunization history:: Adult Immunizations up to date. - Infectious Disease History:: Denies. - Social history:: Smoking status: Patient denies any tobacco usage or history of. - Family history:: not pertinent. - Hospitalizations: : No recent hospitalization is reported. Screenin:30 [facility] ED Fall Risk Assessment (Adult) History of falling in the last 3 months, bp including since admission No falls in past 3 months (0 pts) Confusion or Disorientation No (0 pts) Intoxicated or Sedated No (0 pts) Impaired Gait No (0 pts) Mobility Assist Device Used No (0 pt) Altered Elimination No (0 pt) Score/Fall Risk Level 0 - 2 = Low Risk Oriented to surroundings. Abuse screen: Denies threats or abuse. Denies injuries from another. Nutritional screening: No deficits noted. Tuberculosis screening: No symptoms or risk factors identified. Vital Signs: 11:43 BP 144 / 84; Pulse 82; Resp 16; Temp 98; Pulse Ox 100% ; bp ED Course: 11:22 Patient arrived in ED. im 11:27 Anthony Schofield MD is Attending Physician. rn 11:43 Arm band placed on. bp 11:44 Triage completed. bp 12:27 Ralph Zaldivar, RN is Primary Nurse. bp 12:30 Patient has correct armband on for positive identification. bp 12:30 No provider procedures requiring assistance completed. Patient did not have IV access bp during this emergency room visit. Administered Medications: 12:28 Drug: MethylPREDNISolone Sodium Succinate IM 125 mg IM once Route: IM; Site: right bp deltoid; 12:29 Follow up: Response: No adverse reaction bp 12:28 Drug: hydrOXYzine PO 50 mg PO once Route: PO; bp 12:28 Follow up: Response: No adverse reaction bp Outcome: 11:52 Discharge ordered by . rn 12:30 Discharged to home ambulatory, with family, bp 12:30 Condition: stable 12:30 Discharge instructions given to patient, Instructed on discharge instructions, follow up and referral plans. medication usage, Demonstrated understanding of instructions, follow-up care, medications, Prescriptions given X 2, 12:31 Patient left the ED. bp Signatures: Anthony Schofield MD MD rn Peltier, Brian, RN RN bp Juanita Wilkinson im
[2025-06-27] MEDS ORDERED: METHYLPREDNISOLONE 125 MG INJ ONE (12:07)
[2025-06-27] MEDS ORDERED: hydrOXYzine HCL 25 MG TAB ONE (12:07)
[2025-06-27 12:37] VITALS: BP 144/84; TEMP 98; O2SAT 100
== END 2025-06-27 12:31 | disposition home or self-care (01) ==
LOC: ER 11:14
DX: L23.7 Allergic contact dermatitis due to plants, except food (principal)
CPT/HCPCS: 96372; 99284; J2919